=== PATIENT | female | born 1970 | race Caucasian/White ===

== ENCOUNTER 2016-09-11 05:31 | Inpatient (IN) | payer OTHER ==
--- NOTE | 2016-09-11 05:42 | ED ---
Psychiatric Complaint - HPI Summary HPI Summary: Patient presents for evaluation of anxiety and suicidal thoughts. She is sedative dependent and ran out of librium, subsequently using illicit drugs, alcohol to sedate herself. Denies any other coingestants, physical complaints. Denies specific stressors. - History Of Current Complaint Time Seen by Provider: 09/11/16 05:37 Hx Obtained From: Patient, EMS Onset/Duration: Gradual Onset Severity Initially: Moderate Severity Currently: Moderate - Allergies/Home Medications Allergies/Adverse Reactions: Allergies Allergy/AdvReac Type Severity Reaction Status Date / Time Codeine Allergy Palpitation Verified 02/02/16 11:53 s Sumatriptan Allergy CHEST Verified 02/02/16 11:53 TIGHTNESS Home Medications: Home Medications Librium CAP* 10 mg PO TID 09/11/16 [History Confirmed 09/11/16] Pristiq 50 mg PO DAILY 09/11/16 [History Confirmed 09/11/16] PMH/Surg Hx/FS Hx/Imm Hx Endocrine/Hematology History: Reports: Hx Thyroid Disease - hypo Cardiovascular History: Reports: Hx Hypertension Respiratory History: Reports: Hx Asthma Denies: Hx Chronic Obstructive Pulmonary Disease (COPD) - reports that she feels that she does but no actual diagnosis GI History: Reports: Hx Gastroesophageal Reflux Disease, Other GI Disorders - Inguinal Hernia Repair Musculoskeletal History: Reports: Hx Arthritis - KNEES, Hx Fibromyalgia Sensory History: Reports: Hx Contacts or Glasses - states she uses glasses when she reads Opthamlomology History: Reports: Hx Contacts or Glasses - states she uses glasses when she reads Neurological History: Reports: Hx Headaches, Hx Migraine - Hx OF, RARE NOW Denies: Hx Seizures Psychiatric History: Reports: Hx Anxiety - ON MEDS DAILY, Hx Depression, Hx Post Traumatic Stress Disorder, Hx Inpatient Treatment - pt states 3-4x inpt [facility] [place], Hx Community Mental Health Tx - Pt connected to [facility], Hx Suicide Attempt, Hx Substance Abuse Denies: Hx Attention Deficit Hyperactivity Disorder, Hx Eating Disorder - pt denies anorexia, but has lost 50 lbs. since , states due to stress, Hx Panic Disorder, Hx Schizophrenia, Hx Bipolar Disorder, Hx of Violent Episodes Against Others, Other Psychiatric Issues/Disorders - pt admitted to non- suicidal self harm (cutting) - Cancer History Cancer Type, Location and Year: cervical Hx Chemotherapy: No Hx Radiation Therapy: No - Surgical History Surgery Procedure, Year, and Place: 2007 leep procedure. 2000s LEFT breast lobectomy negative [facility]. 1999 left inguinal hernia REPAIR [facility]. 1994 SCOPE RIGHT KNEE [facility]. Right wrist fx repair. laparoscopy. laprascopy Hx Anesthesia Reactions: Yes - 1993 ?? ANESTH TO OTHER LEG? - Immunization History Date of Tetanus Vaccine: utd Infectious Disease History: Denies: Hx Clostridium Difficile, Hx Hepatitis, Hx Human Immunodeficiency Virus (HIV), Hx of Known/Suspected MRSA, Hx Shingles, Hx Tuberculosis, Hx Known/ Suspected VRE, Hx Known/Suspected VRSA, History Other Infectious Disease, Traveled Outside the [place] in Last 30 Days - Family History Known Family History: Positive: Cardiac Disease, Other - Thyroid Dz - Social History Alcohol Use: Occasionally Alcohol Amount: holidays Hx Substance Use: Yes - Pt denies, hx substance abuse per medical records Substance Use Type: Reports: None Substance Use Comment - Amount & Last Used: intoxicated wolfgang 2014 Hx Tobacco Use: No Smoking Status (MU): Light Every Day Tobacco Smoker Type: Cigarettes Amount Used/How Often: 1/2PPD 25 YRS Have You Smoked in the Last Year: No Review of Systems Positive: Anxious, Depressed All Other Systems Reviewed And Are Negative: Yes Physical Exam Triage Information Reviewed: Yes Vital Signs Reviewed: Yes Appearance: Positive: Well-Appearing, No Pain Distress, Well-Nourished Skin: Positive: Warm, Skin Color Reflects Adequate Perfusion, Dry Head/Face: Positive: Normal Head/Face Inspection Eyes: Positive: Normal, EOMI, JULES Neck: Positive: Supple Respiratory/Lung Sounds: Positive: Clear to Auscultation, Breath Sounds Present Cardiovascular: Positive: Normal, RRR, Pulses are Symmetrical in both Upper and Lower Extremities Abdomen Description: Positive: Nontender, No Organomegaly, Soft Musculoskeletal: Positive: Normal, Strength/ROM Intact Neurological: Positive: Normal, Sensory/Motor Intact, Alert, Oriented to Person Place, Time, CN Intact II-III, Reflexes Intact, NV Bundle Intact Distally, Normal Gait Psychiatric: Positive: Anxious, Depressed Diagnostics - Laboratory Result Diagrams: 09/11/16 06:01 09/11/16 06:01 Lab Statement: Any lab studies that have been ordered have been reviewed, and results considered in the medical decision making process. Course/Dx - Differential Dx/Clinical Impression Differential Diagnosis/HQI/PQRI: Positive: Alcohol Intoxication, Anxiety, Depression, Suicidal Ideation Provider Diagnosis: Depression Discharge - Discharge Plan Condition: Stable Disposition: ADMITTED TO [facility]
[2016-09-11 06:09] LABS: Hematocrit 42 % (35-47); Mean Corpuscular HGB Conc 34 g/dl (31-36); Mean Corpuscular Hemoglobin 27 pg (27-31); Mean Corpuscular Volume 79 fL (80-97); Mean Platelet Volume 8 um3 (7.4-10.4); Red Blood Count 5.29 10^6/ul (4.0-5.4); Red Cell Distribution Width 14 % (10.5-15); White Blood Count 8.3 10^3/ul (3.5-10.8)
[2016-09-11 06:24] LABS: Anion Gap 8 mmol/L (2-11); Blood Urea Nitrogen 9 mg/dL (6-24); CO2 Carbon Dioxide 22 mmol/L (22-32); Calcium 9.1 mg/dL (8.6-10.3); Chloride 106 mmol/L (101-111); EGFR African American 137.8 (>60); EGFR Non-African American 107.2 (>60); Glucose 87 mg/dL (70-100); Potassium 3.3 mmol/L (3.5-5.0); Sodium 136 mmol/L (133-145)
[2016-09-11 06:41] LABS: Acetaminophen < 15 mcg/mL; Alcohol 86 mg/dL (<10); Salicylate < 2.50 mg/dL (<30)
[2016-09-11] MEDS ORDERED: LORazepam TAB(*) 1 MG PO ONE (08:29)
[2016-09-11 09:18] LABS: Benzodiazepine Urine Screen Presumptive Positive (None Detect)
--- NOTE | 2016-09-11 10:54 | CONSULT ---
Consult Consult: Anna Blue presented with depression with SI and a plan to stab herself in the stomach. She was medically cleared on the previous shift and seen by the E this AM. She will be admitted voluntarily in stable condition with the diagnosis of Depression with SI.
[2016-09-11] MEDS ORDERED: Nicotine Inhaler* 10 MG AMP INH PRN (14:23)
[2016-09-11] MEDS ORDERED: Al Hydrox/Mg Hydrox/Simet LIQ* 30 ML UDC PO PRN (14:23)
[2016-09-11] MEDS ORDERED: Albuterol HFA INHALER* 8 gm MDI INH PRN (14:26)
[2016-09-11] MEDS: Vitamin THERAPEUTIC TAB PO SCH (16:39)
[2016-09-11] MEDS: Acetaminophen TAB* 325 MG PO PRN (18:53)
[2016-09-11] MEDS ORDERED: hydrOXYzine HCL TAB* 50 MG PO PRN (19:27)
[2016-09-12] MEDS: Levothyroxine TAB* 50 MCG TAB PO SCH (09:45)
[2016-09-12] MEDS: Vitamin THERAPEUTIC TAB PO SCH (09:45)
[2016-09-12] MEDS: Acetaminophen TAB* 325 MG PO PRN (09:46)
[2016-09-12] MEDS: FluvoxaMINE (NF) 50 MG TAB PO SCH (16:00)
--- NOTE | 2016-09-12 16:41 | HP ---
DATE OF ADMISSION: 09/11/2016. JUSTIFICATION FOR ADMISSION: The patient is in need of 24 hour supervision and care secondary to suicidal ideations reported within 72 hours of admission date. 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 She indicates that her last visit with her psychiatric nurse practitioner at [facility] was August 16 and she was given a full 30 day supply of Librium at that time. She openly admits to overutilizing this to the extent that she ran out of the medications approximately ten days prior to admission. She indicates that her anxiety was out of control and that she was self-medicating with alcohol, cannabis, and methamphetamine on at least one occasion. Her alcohol level was 86 when she arrived. She was tearful, very dramatic in the emergency room, sobbing; at one point throwing herself over a stretcher, pulling her own hair and pacing rapidly. She could not contract for safety and it was determined that she would benefit from a voluntary admission to our unit. At that time of her first interaction with me, she is calm and cooperative, stating that she got good sleep last night and feels better now that she is off of alcohol. She is more hopeful about the future and somewhat fixated on her benzodiazepine dose. She feels that her nurse practitioner, a provider named Bea Cunningham, at [facility] has been underdosing her and this was her reason for overutilizing her Librium. She appears to be attempting to convince me to increase her benzodiazepine dosage at this time and she has stopped complaining of suicidal ideations. I try to get a sense of what her current stressors might be, but mostly she talks about long ago developmental stressors such as a poor relationship with her mother and the severe and persistent mental illness of one of her sons. She denies neurovegetative symptoms of depression at this time, complaining mostly of anxiety and symptoms of OCD. She tells me that she has PTSD, but she cannot give me any formal symptoms of this. PAST PSYCHIATRIC HISTORY: Her last psychiatric hospitalization was in early April 2016 under the care of psychiatrist Dr. Owen Loomis. She has had a total of four inpatient admissions to [facility] [place]. Typically she gets outpatient care at [facility] where her psychiatrist is Bea Cunningham and her outpatient therapist is Cecelia Vance LCSW. PAST MEDICAL HISTORY: Significant for hypothyroidism, gastroesophageal reflux disease, interstitial cystitis, migraines, and bruxism. OUTPATIENT MEDICATIONS: 1. Levothyroxine 50 mcg p.o. daily. 2. Omeprazole 40 mg p.o. at bedtime. 3. Ibuprofen 600 mg every 8 hours as needed for pain. 4. Luvox 100 mg daily. 5. Pristiq 50 mg p.o. daily. 6. Librium 10 mg p.o. t.i.d. ALLERGIES: She is ALLERGIC TO CODEINE AND SUMATRIPTAN. FAMILY HISTORY: She has a grandmother and her mother who both have schizophrenia. She also has a 25-year-old son with schizophrenia. SUBSTANCE ABUSE HISTORY: She does have a long history of abusing alcohol and occasionally cannabis; methamphetamine is somewhat new to her. She denies any past history of formal substance abuse rehabilitation. She is a social smoker, indicating that she finishes a pack of cigarettes after approximately four to five days. SOCIAL HISTORY: The patient was born and raised in [place], having moved to [place] in [place]. She was educated to the extent of a high school diploma, but she has not attended college. She states that she has not worked in years due to having to care for her four children. She has a 27-year- old son who is a physical therapist who is currently in medical school; a 25- year-old son who is diagnosed with schizophrenia and followed by the [facility] treatment team; a 23-year-old daughter with behavioral difficulties, who is now the mother of two children; she also has a 19-year-old son who does not live with her. The patient herself is one of four children. She has an adopted brother and then two full biological sisters. She was the oldest and had to take care of her younger siblings due to her mother's schizophrenia. REVIEW OF SYSTEMS: The patient is complaining of insomnia. Other than this, she denies headache or double vision. She denies sore throat, cough, chest pain , or difficulty breathing. She denies abdominal pain, nausea, vomiting, diarrhea or constipation. She denies difficulty ambulating, any recent changes in her weight, fevers, enlarged lymph nodes or rashes. PHYSICAL EXAMINATION VITAL SIGNS: Blood pressure 117/79, pulse rate 83, oxygen saturations 100 percent on room air, respiratory rate is 16, temperature is 98.6 degrees Fahrenheit. HEENT: Head is normocephalic, atraumatic. NECK: Supple. CHEST: Clear to auscultation bilaterally. CARDIAC: Exam reveals normal heart sounds. ABDOMEN: Soft and nontender. MUSCULOSKELETAL: Exam reveals a full range of motion all four extremities. NEUROLOGIC: She is grossly intact with no focal deficits. LABORATORY DATA: Her complete blood count is within normal limits. Complete metabolic panel reveals mildly depleted potassium at 3.3. Her TSH is within normal limits at 2.60. Urine toxicology is positive for benzodiazepines. Her serum alcohol level was 86. MENTAL STATUS EXAM: The patient is a middle-aged, attractive, white female who looks slightly older than her stated age. She appears somewhat tired, fatigued. She is clean and well-groomed, has dyed blond hair, is dressed in patient scrubs. Speech has a normal rate, tone and volume. Mood is anxious with a corresponding anxious affect. Thought process is linear and goal- directed. Thought content is significant for her desire to increase the dose of her benzodiazepine. Currently she is denying suicidal or homicidal ideations. She denies auditory or visual hallucinations. Insight and judgment appear to be somewhat limited given the fact that she has not been following up with outpatient mental health treatment and the fact that she has been overutilizing benzodiazepines. Cognitively, she is awake and alert with a somewhat vague and diffuse cognitive style. DIAGNOSES: AXIS I: Unspecified anxiety disorder; PTSD by history; OCD by history. AXIS II: Borderline personality disorder; histrionic personality disorder. AXIS III: Hypothyroidism, gastroesophageal reflux disease, interstitial cystitis, migraines, and bruxism. AXIS IV: Moderate, primary support stressors. AXIS V: At this time is 45. 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 She is stating that she would like to be put back on Librium as well as Luvox therapy and is also stating that she sleeps better when she is on Prazosin. The patient appears to have gotten considerably better after one night's stay so far in the hospital and she is steadfastly denying suicidal ideations. PLAN: The patient is admitted to the Adult Behavioral Health Unit where she is placed on q.30 minute checks for her own safety. While she is here, she is certainly encouraged to avail herself of all milieu activities, including individual and group psychotherapies. We need to get in touch with [facility] to make sure that she is still welcome to receive treatment there and to receive any additional collateral information that they might provide. The patient does appear to be dependent on benzodiazepines, but she is reluctant to decrease or discontinue these; therefore, we will resume Librium treatment at the low dose of 10 mg p.o. t.i.d. which is what she mostly recently retrieved from Bea Cunningham. In addition, we can resume Fluvoxamine at 100 mg p.o. daily and start her on a trial of Prazosin 2 mg p.o. at bedtime according to her wishes as she states this helps with sleep. In addition, her other medications such as Synthroid and Omeprazole can be continued. The patient has a safe house in the community that she resides in and I did not seen any further barriers to discharge at this time. It is likely that if she is continuing to deny suicidal ideations tomorrow, that we will refer her to [facility] for close mental health follow-up in the community. [id number]/[facility] [place] #: [id number] [place]
[2016-09-12] MEDS: Prazosin CAP* 1 MG PO SCH (20:43)
[2016-09-12] MEDS: chlordiazePOXIDE CAP* 10 MG PO SCH (20:44)
[2016-09-13] MEDS: chlordiazePOXIDE CAP* 10 MG PO SCH ×3 (08:41→20:09)
[2016-09-13] MEDS: Levothyroxine TAB* 50 MCG TAB PO SCH (08:41)
[2016-09-13] MEDS: FluvoxaMINE (NF) 50 MG TAB PO SCH (08:42)
[2016-09-13] MEDS: Omeprazole CAP* 20 MG PO SCH (08:42)
[2016-09-13] MEDS: Vitamin THERAPEUTIC TAB PO SCH (08:42)
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
[2016-09-13] MEDS: Prazosin CAP* 1 MG PO SCH (20:09)
[2016-09-14] MEDS: Omeprazole CAP* 20 MG PO SCH (06:33)
[2016-09-14] MEDS: Levothyroxine TAB* 50 MCG TAB PO SCH (06:33)
[2016-09-14 08:08] VITALS: BP 102/71
[2016-09-14] MEDS: FluvoxaMINE (NF) 50 MG TAB PO SCH (09:06)
[2016-09-14] MEDS: Vitamin THERAPEUTIC TAB PO SCH (09:08)
[2016-09-14] MEDS: chlordiazePOXIDE CAP* 10 MG PO SCH ×2 (09:08→14:32)
--- NOTE | 2016-09-14 13:08 | PN ---
[facility]: Group Therapy Note - Service Type Service Type: [id number] Group Psychotherapy - Cognitive Behavioral Group Therapy ( CBT):Patient was attentive and participatory in CBT programming this morning, and remained in good behavioral control. Patient expressed positive insights regarding relevant treatment interventions and goals.
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
== END 2016-09-14 17:15 | disposition home or self-care (01) | DRG 756 ==
LOC: ED 05:31 → BSU 15:06
PROVIDERS: ADMIT Psychiatry & Neurology Psychiatry; ATTEND Psychiatry & Neurology Psychiatry
DX: F41.9 Anxiety disorder, unspecified (principal); N30.10 Interstitial cystitis (chronic) without hematuria; R45.851 Suicidal ideations; F10.14 Alcohol abuse with alcohol-induced mood disorder; Y90.4 Blood alcohol level of 80-99 mg/100 ml; F43.10 Post-traumatic stress disorder, unspecified; F42.9 Obsessive-compulsive disorder, unspecified; F60.3 Borderline personality disorder; F60.4 Histrionic personality disorder; E03.9 Hypothyroidism, unspecified; K21.9 Gastro-esophageal reflux disease without esophagitis; G43.909 Migraine, unspecified, not intractable, without status migrainosus; F17.210 Nicotine dependence, cigarettes, uncomplicated; Z79.1 Long term (current) use of non-steroidal anti-inflammatories (NSAID); Z79.899 Other long term (current) drug therapy; Z88.6 Allergy status to analgesic agent; Z88.8 Allergy status to other drugs, medicaments and biological substances; Z81.8 Family history of other mental and behavioral disorders; F12.10 Cannabis abuse, uncomplicated
CPT/HCPCS: 36415; 80048; 80307; 80320; 80329; 84443; 85027; 90853; 99231; 99238; 99406; A9270-GY; G0480